=== PATIENT | male | born 1975 | race African-American/Black ===

== ENCOUNTER 2022-01-08 03:47 | Emergency (ER) | payer OTHER | END 2022-01-08 04:15 | disposition home or self-care (01) | LOC: NAV ERS 03:47 | DX: S90.422A Blister (nonthermal), left great toe, initial encounter (principal); S90.822A Blister (nonthermal), left foot, initial encounter; F17.210 Nicotine dependence, cigarettes, uncomplicated; X58.XXXA Exposure to other specified factors, initial encounter | CPT/HCPCS: 99283 ==